=== PATIENT | male | born 2000 | race Caucasian/White ===

== ENCOUNTER 2021-07-04 11:24 | Emergency (ER) | payer OTHER ==
[~2021-07-04] VITALS: Ht 177.8 cm; Wt 100.0 kg
[2021-07-04 12:14] VITALS: BP 134/81
[2021-07-04] MEDS ORDERED: AMOX1TAB16 MT (13:19)
== END 2021-07-04 13:43 | disposition home or self-care (01) ==
LOC: ER 11:24
DX: H61.21 Impacted cerumen, right ear (principal); H72.91 Unspecified perforation of tympanic membrane, right ear; F41.9 Anxiety disorder, unspecified
CPT/HCPCS: 82962; 99283

== ENCOUNTER 2022-05-23 23:52 | Emergency (ER) | payer OTHER ==
[~2022-05-23] VITALS: Ht 177.8 cm; Wt 94.5 kg
[~2022-05-23 23:52] MED LIST: AMOX1TAB16 MT
[2022-05-24 00:15] VITALS: BP 150/91
[2022-05-24 01:37] LABS: BASOPHILS % 0.3 % (0.0-2.0); EOSINOPHILS % 0.2 % (0.0-5.0); HEMOGLOBIN. 15.9 g/dL (14.0-18.0); LYMPHOCYTES % 14.3 % (20.0-50.0); MEAN CORPUSCULAR HEMOGLOBIN 28.3 pg (28.0-32.0); MEAN PLATELET VOLUME 8.1 fl (7.4-10.4); MONOCYTES % 7.5 % (2.0-8.0); NEUTROPHILS % 77.7 % (40.0-76.0); PLATELET 258 x1000/uL (130-400); RED BLOOD CELL COUNT 5.62 mill/uL (4.7-6.1); RED CELL DISTRIBUTION WIDTH 13.6 % (11.6-14.6)
[2022-05-24 01:45] LABS: CHLORIDE 105 mEq/L (98-107)
[2022-05-24 02:00] LABS: T4 FREE 1.29 ng/dL (0.76-1.46)
== END 2022-05-24 02:41 | disposition home or self-care (01) ==
LOC: ER 23:52
DX: R00.2 Palpitations (principal); F41.9 Anxiety disorder, unspecified
CPT/HCPCS: 36415; 71045; 80048; 84439; 84443; 84484; 85025; 99284

== ENCOUNTER 2024-11-26 18:06 | Emergency (ER) | payer OTHER ==
[~2024-11-26] VITALS: Ht 177.8 cm; Wt 90.7 kg
[2024-11-26 18:10] VITALS: O2SAT 100
[2024-11-26 18:12] VITALS: O2SAT 99
[2024-11-26 19:43] LABS: CLARITY URINE CLEAR (CLEAR); COLOR URINE YELLOW (YELLOW); GLUCOSE URINE NEGATIVE (NEGATIVE); KETONES URINE NEGATIVE (NEGATIVE); OCCULT BLOOD URINE NEGATIVE (NEGATIVE); PROTEIN URINE NEGATIVE (NEGATIVE); SPECIFIC GRAVITY URINE 1.015 (1.005-1.030)
[2024-11-26 19:44] LABS: LEUKOCYTE ESTERASE URINE NEGATIVE (NEGATIVE); NITRITE URINE NEGATIVE (NEGATIVE); UROBILINOGEN URINE 0.2 E.U./dL (0.2-1.0)
[2024-11-26 22:05] VITALS: BP 164/113; PULSE 85; RESP 12; TEMP 37.4
== END 2024-11-26 22:23 | disposition home or self-care (01) ==
LOC: ER 18:06
DX: R10.33 Periumbilical pain (principal); F41.9 Anxiety disorder, unspecified
CPT/HCPCS: 81003; 99283